=== PATIENT | female | born 1990 | race Caucasian/White ===

== ENCOUNTER 2021-06-30 10:06 | Emergency (ER) | payer OTHER ==
[~2021-06-30] VITALS: Ht 160 cm; Wt 77.1 kg
--- NOTE | 2021-06-30 10:09 | NUR ---
SENT TO ER BED 10. BIBRA 37 FROM THE GYM C/O SYNCOPAL EPISODE WHILE DOING DEADLIFT. VITALS WRE WITH NORMAL LIMITS. BREATHING REGULAR AND UNLABORED. AWAITING MD HERNANDEZ.
[2021-06-30 10:58] LABS: BASOPHILS % (AUTO) 0.4 % (0.0-2.0); EOSINOPHILS % (AUTO) 0.5 % (0.0-6.0); HEMATOCRIT 38 % (33-45); LYMPHOCYTES % (AUTO) 25.3 % (20.0-44.0); MEAN CORPUSCULAR HGB CONC 34 g/dl (31.0-36.0); MEAN CORPUSCULAR VOLUME 91 fL (82-100); MONOCYTES # (AUTO) 0.6 K/uL (0.1-1.30); MONOCYTES % (AUTO) 8.1 % (2.0-12.0); NEUTROPHILS # (AUTO) 5.1 K/uL (1.8-8.9); NEUTROPHILS % (AUTO) 65.7 % (43.0-81.0); PLATELET COUNT (AUTO) 235 K/uL (150-450); RED BLOOD CELL COUNT(AUTO) 4.19 MIL/uL (4.0-5.2); WHITE BLOOD COUNT (AUTO) 7.8 K/uL (4.3-11.0)
[2021-06-30] MEDS ORDERED: ACETAMINOPHEN ES 500 MG TABLET ONE (10:59)
[2021-06-30] MEDS ORDERED: ACETAMINOPHEN ES 500 MG TABLET PO ONE (11:00)
[2021-06-30 11:04] LABS: CALCIUM, SERUM 9.9 mg/dL (8.5-10.1); CARBON DIOXIDE 29 mmol/L (21-32); CHLORIDE 100 mmol/L (98-107); CREATININE 0.9 mg/dL (0.6-1.3); GLUCOSE 75 mg/dL (74-106); SODIUM SERUM 132 mmol/L (136-145); UREA NITROGEN, BLOOD 17 mg/dL (7-18)
[2021-06-30] MEDS ORDERED: IBUPROFEN 600 MG TABLET PO ONE (12:00)
[2021-06-30] MEDS ORDERED: IBUPROFEN 600 MG TABLET ONE (12:04)
--- NOTE | 2021-06-30 13:20 | NUR ---
CT DELAYED, LAB HAS NOT RESULTED HCG BLOOD TEST.
--- NOTE | 2021-06-30 14:48 | NUR ---
IV removed. Catheter intact and site benign. Pressure and 4x4 applied to site. No bleeding noted.Patient discharged to home in stable condition. Written and verbal after care instructions given. Patient verbalizes understanding of instruction. Patient awaiting for her ride.
[2021-06-30 15:36] VITALS: BP 121/75
== END 2021-06-30 15:37 | disposition home or self-care (01) ==
LOC: ER 10:08 → EDBD 10:08 → ER 15:37
DX: R55 Syncope and collapse (principal); M54.50 Low back pain, unspecified
CPT/HCPCS: 36415; 72131-TC; 80048-TC; 84484-TC; 84702-TC; 85025-TC